=== PATIENT | female | born 1965 | race Caucasian/White ===

== ENCOUNTER → 2024-01-12 16:52 | Outpatient (REF) | payer BC, SELFPAY | LOC: MRI 3T 16:52 | PROVIDERS: ATTENDING PHYSICIAN Family Medicine; REFERRING PHYSICIAN Chiropractor | DX: M54.12 Radiculopathy, cervical region (principal); M54.50 Low back pain, unspecified; M54.6 Pain in thoracic spine; R07.82 Intercostal pain | CPT/HCPCS: 71101; 72050; 72072; 73030; 77049; A9585 ==